=== PATIENT | female | born 1990 | race American Indian/Alaskan Native ===

== ENCOUNTER 2016-04-18 23:29 | Emergency (ER) | payer OTHER ==
[2016-04-18] MEDS ORDERED: TYLENOL ONE (23:33)
[2016-04-18 23:45] VITALS: BP 115/61
[2016-04-18] MEDS: TYLENOL PO ONE (23:46)
[2016-04-19 00:44] LABS: Basophils % (Auto) 0.3 % (0.0-1.8); Eosinophils % (Auto) 0.5 % (0.0-4.3); Hematocrit 40.4 % (30.3-42.9); Mean Corpuscular HGB Conc 32 % (30-34); Mean Corpuscular Hemoglobin 29 pg (28-32); Mean Corpuscular Volume 88 fl (79-97); Platelet Count 158 K/mm3 (140-440); Red Blood Count 4.58 M/mm3 (3.65-5.03); Red Cell Distribution Width 15.3 % (13.2-15.2); White Blood Count 8.1 K/mm3 (4.5-11.0)
[2016-04-19 00:50] LABS: Alanine Aminotransferase 11 units/L (7-56); Albumin 3.8 g/dL (3.9-5); Albumin/Globulin Ratio 1.3 %; Alkaline Phosphatase 76 units/L (35-129); Anion Gap 17 mmol/L; BUN/Creatinine Ratio 8.57; Bilirubin,Total 0.3 mg/dL (0.1-1.2); Blood Urea Nitrogen 6 mg/dL (7-17); Calcium 8.5 mg/dL (8.4-10.2); Carbon Dioxide 23 mmol/L (22-30); Chloride 101.1 mmol/L (98-107); Glucose 92 mg/dL (65-100); Lipase 37 units/L (13-60); Potassium 3.9 mmol/L (3.6-5.0); Sodium 137 mmol/L (137-145); Total Protein 6.8 g/dL (6.3-8.2)
[2016-04-19 01:55] LABS: Bilirubin,Urine NEG (Negative); Blood,Urine SM (Negative); Ketones,Urine NEG (Negative); Leukocyte Esterase,Urine LG (Negative); Mucus,Urine FEW /HPF; Nitrite,Urine NEG (Negative); Urobilinogen,Urine < 2.0 mg/dL (<2.0)
[2016-04-19 02:03] LABS: WBC,Urine > 182.0 /HPF (0.0-6.0)
--- NOTE | 2016-04-22 19:49 | ED Elopement Review ---
ED Pt Elopement review - Results review Lab results: Laboratory Tests 04/19/16 04/19/16 04/19/16 00:02 00:02 00:02 WBC 8.1 RBC 4.58 Hgb 13.0 Hct 40.4 MCV 88 MCH 29 MCHC 32 RDW 15.3 H Plt Count 158 Lymph % (Auto) 17.3 [place]e % (Auto) 6.2 Eos % (Auto) 0.5 Baso % (Auto) 0.3 Lymph # 1.4 B[place]e # 0.5 Eos # 0.0 Baso # 0.0 Seg Neutrophils % 75.7 H Seg Neutrophils # 6.2 Sodium 137 Potassium 3.9 Chloride 101.1 Carbon Dioxide 23 Anion Gap 17 BUN 6 L Creatinine 0.7 Estimated GFR > 60 BUN/Creatinine Ratio 8.57 Glucose 92 Calcium 8.5 Total Bilirubin 0.3 AST 12 ALT 11 Alkaline Phosphatase 76 Total Protein 6.8 Albumin 3.8 L Albumin/Globulin Ratio 1.3 Lipase 37 HCG, Qual Negative Urine Color Urine Turbidity Urine pH Ur Specific [place] Urine Protein Urine Glucose (UA) Urine Ketones Urine Blood Urine Nitrite Urine Bilirubin Urine Urobilinogen Ur Leukocyte Esterase Urine WBC (Auto) Urine RBC (Auto) U Epithel Cells (Auto) Urine Mucus 04/19/16 01:32 WBC RBC Hgb Hct MCV MCH MCHC RDW Plt Count Lymph % (Auto) [place] % (Auto) Eos % (Auto) Baso % (Auto) Lymph # [place] # Eos # Baso # Seg Neutrophils % Seg Neutrophils # Sodium Potassium Chloride Carbon Dioxide Anion Gap BUN Creatinine Estimated GFR BUN/Creatinine Ratio Glucose Calcium Total Bilirubin AST ALT Alkaline Phosphatase Total Protein Albumin Albumin/Globulin Ratio Lipase HCG, Qual Urine Color Yellow Urine Turbidity Slightly-cloudy Urine pH 8.0 H Ur Specific [place] 1.013 Urine Protein 30 mg/dl Urine Glucose (UA) Neg Urine Ketones Neg Urine Blood Sm Urine Nitrite Neg Urine Bilirubin Neg Urine Urobilinogen < 2.0 Ur Leukocyte Esterase Lg Urine WBC (Auto) > 182.0 H Urine RBC (Auto) 9.0 U Epithel Cells (Auto) 2.0 Urine Mucus Few - Call Back decision Pt Call Back Decision: Call pt to return to ED [facility] (patient is to return to the emergency room possible cystitis, fever he weighed greater than 182 WBCs.)
== END 2016-04-19 01:23 | disposition left against medical advice (07) ==
LOC: ED 23:29
DX: M54.5 Low back pain (principal); R10.9 Unspecified abdominal pain; R50.9 Fever, unspecified; Z53.21 Procedure and treatment not carried out due to patient leaving prior to being seen by health care provider
CPT/HCPCS: 36415; 80053; 81001; 83690; 84703; 85025